=== PATIENT | male | born 1950 | race Caucasian/White ===

== ENCOUNTER 2023-07-19 12:46 | Outpatient (CLI) | payer MEDICARE, BC, SELFPAY | END 2023-07-19 12:47 | disposition home or self-care (01) | PROVIDERS: PCP Family Medicine; Visit Provider Family Medicine | DX: Z00.00 Encounter for general adult medical examination without abnormal findings (principal); E78.00 Pure hypercholesterolemia, unspecified; Z12.5 Encounter for screening for malignant neoplasm of prostate | CPT/HCPCS: 80053; 80061; G0103 ==

== ENCOUNTER 2023-07-26 09:03 | Outpatient (CLI) | payer MEDICARE, BC, SELFPAY ==
--- NOTE | 2023-07-26 10:34 | W.ANESCHARGE ---
Anesthesia Charges Start Date/Time Anesthesia Start Date: 07/26/23 Anesthesia Start Time: 10:10 Stop Date/Time Anesthesia Stop Date: 07/26/23 Anesthesia Stop Time: 11:15 Summary Extremes of Age - Over 70 or under 1: MDA
--- NOTE | 2023-07-26 11:19 | W.ANESCHARGE ---
Anesthesia Charges Start Date/Time Anesthesia Start Date: 07/26/23 Anesthesia Start Time: 10:10 Stop Date/Time Anesthesia Stop Date: 07/26/23 Anesthesia Stop Time: 11:15
== END 2023-07-26 09:04 | disposition home or self-care (01) ==
LOC: OP CLINIC 09:04
PROVIDERS: PCP Family Medicine; Visit Provider Surgery
DX: Z12.11 Encounter for screening for malignant neoplasm of colon (principal); K64.8 Other hemorrhoids; Z86.010 Personal history of colon polyps
CPT/HCPCS: 00902; 45398; 99100; J2704